=== PATIENT | male | born 1945 | race Caucasian/White ===

== ENCOUNTER 2017-03-29 16:58 | Inpatient (IN) | payer OTHER, MEDICARE ==
[~2017-03-29 16:58] MED LIST: CHOL1TAB6 PO; DOCU100T9 PO; ELVI1TAB4; HYDR25R RECTAL; MIDO5 PO; POLY17S PO; PRAV20 PO; TAB-TAB PO; TAMS.4 PO
[2017-03-29 17:02] VITALS: BP 117/64; PULSE 84; RESP 16; TEMP 97.6; O2SAT 96
[2017-03-29 17:36] LABS: AUTOMATED NEUTROPHIL # 3.7 TH/MM3 (1.8-7.7); BASOPHIL % 0.4 % (0.0-2.0); EOSINOPHIL # 0.1 TH/MM3 (0-0.4); EOSINOPHIL % 1.4 % (0.0-4.0); HEMO FLAGS DIFF FINAL; LYMPH % 43.5 % (9.0-44.0); LYMPHOCYTE # 3.4 TH/MM3 (1.0-4.8); MEAN CELL VOLUME 92.9 FL (80.0-100.0); MEAN CORPUSCULAR HEMOGLOBIN 29.5 PG (27.0-34.0); MEAN CORPUSCULAR HGB CONC 31.8 % (32.0-36.0); MONO % 8.6 % (0.0-8.0); NEUT % 46.1 % (16.0-70.0); PLATELET COUNT 177 TH/MM3 (150-450); RED BLOOD COUNT 4.41 MIL/MM3 (4.50-5.90); RED CELL DISTRIBUTION WIDTH 15.1 % (11.6-17.2); WHITE BLOOD COUNT 7.9 TH/MM3 (4.0-11.0)
[2017-03-29 17:43] LABS: POTASSIUM 3.6 MEQ/L (3.5-5.1)
[2017-03-29 17:49] LABS: APTT (PATIENT) 29.6 SEC (24.3-30.1); PROTHROMBIN TIME - PATIENT 10.7 SEC (9.8-11.6)
--- NOTE | 2017-03-29 17:54 | PD ---
HPI Chief Complaint: Fall Time Seen by Provider: 17:02 Travel History International Travel<30 days: No Contact w/Intl Traveler<30days: No Traveled to known affect area: No History of Present Illness HPI 71-year-old male states he tripped and fell while he was walking his dog and now has pain to his left lower ribs on the back area. He did not hit his head or black out. He denies any other concurrent complaints. He presents by ambulance. Pain is sharp. Severity is severe per patient. Pain is worse with movement. He denies other modifying factors. Duration shortly prior to arrival. He denies taking blood thinner medications PFSH Past Medical History Arthritis: Yes Autoimmune Disease: Yes (HIV) Blood Disorders: No Cancer: No Cardiovascular Problems: Yes High Cholesterol: Yes Chemotherapy: No COPD: Yes Cerebrovascular Accident: No Diabetes: Yes Patient Takes Glucophage: Yes Endocrine: Yes Gastrointestinal Disorders: Yes (Was constipated,took laxitives,diarrhea) GERD: Yes Genitourinary: Yes (Admitted 01/04/16 with retension,catheter placed) Hypertension: Yes (States not in 3 to 4 years) Immune Disorder: Yes (HIV ) Implanted Vascular Access Dvce: No Musculoskeletal: Yes Neurologic: No Psychiatric: No Reproductive: Yes (Circumcised 2013, ED since) Respiratory: Yes (COPD) Radiation Therapy: No Tetanus Vaccination: < 5 Years Influenza Vaccination: Yes Past Surgical History Abdominal Surgery: Yes (GALLBLADDER REMOVED 2011) AICD: No Arteriovenous Shunt: No Cardiac Surgery: No Ear Surgery: No Endocrine Surgery: No Eye Surgery: No Genitourinary Surgery: Yes (Circumcision 2013) Gynecologic Surgery: No Insulin Pump: No Joint Replacement: Yes (LEFT HIP) Oral Surgery: No Pacemaker: No Thoracic Surgery: No Other Surgery: Yes (CIRCUMCISION) Social History Alcohol Use: Yes (SOCIAL) Tobacco Use: No (QUIT 5 YRS AGO) Substance Use: No (States no hx drug use,HIV from tattoo in [place]) Allergies-Medications (Allergen,Severity, Reaction): Coded Allergies: brompheniramine (Unverified Allergy, Intermediate, HIVES, 03/29/17) phenylpropanolamine (Unverified Allergy, Intermediate, HIVES, 03/29/17) propoxyphene (Unverified Allergy, Intermediate, Hives, 03/29/17) Reported Meds & Prescriptions Reported Meds & Active Scripts Active Review of Systems Except as stated in HPI: all other systems reviewed are Neg Physical Exam Narrative General: 71 y/o patient in no apparent distress Skin: Warm and dry Eyes: Pupils equal, eomi ENT: no septal hematoma NECK: no pain with palpation and range of motion in midline Cardiovascular: Regular rate and rhythm Respiratory: Normal respiratory effort noted, clear to auscultation bilaterally Abdomen: soft, nontender, nondistended Back: No step-offs, midline spine nontender with palpation, tender to left lower lateral rib area posteriorly Extremities: No pain over main joints Neuro: awake, alert, sensation and motor grossly intact Data Data Last Documented VS Vital Signs Date Time Temp Pulse Resp B/P (MAP) Pulse Ox O2 Delivery O2 Flow Rate FiO2 03/29/17 17:06 (81) 03/29/17 17:02 97.6 84 16 96 Room Air Orders Orders Chest, Pa & Lat (03/29/17 ) Complete Blood Count With Diff (03/29/17 17:04) Basic Metabolic Panel (Bmp) (03/29/17 17:04) Act Partial Throm Time (Ptt) (03/29/17 17:04) Prothrombin Time / Inr (Pt) (03/29/17 17:04) Iv Access Insert/Monitor (03/29/17 17:04) Admit Order (Ed Use Only) (03/29/17 18:29) Morphine Inj (Morphine Inj) (03/29/17 18:30) Ondansetron Inj (Zofran Inj) (03/29/17 18:30) Labs Laboratory Tests Test 03/29/17 17:30 White Blood Count 7.9 TH/MM3 Red Blood Count 4.41 MIL/MM3 Hemoglobin 13.0 GM/DL Hematocrit 41.0 % Mean Corpuscular Volume 92.9 FL Mean Corpuscular Hemoglobin 29.5 PG Mean Corpuscular Hemoglobin Concent 31.8 % Red Cell Distribution Width 15.1 % Platelet Count 177 TH/MM3 Mean Platelet Volume 8.6 FL Neutrophils (%) (Auto) 46.1 % Lymphocytes (%) (Auto) 43.5 % Monocytes (%) (Auto) 8.6 % Eosinophils (%) (Auto) 1.4 % Basophils (%) (Auto) 0.4 % Neutrophils # (Auto) 3.7 TH/MM3 Lymphocytes # (Auto) 3.4 TH/MM3 Monocytes # (Auto) 0.7 TH/MM3 Eosinophils # (Auto) 0.1 TH/MM3 Basophils # (Auto) 0.0 TH/MM3 CBC Comment DIFF FINAL Differential Comment Prothrombin Time 10.7 SEC Prothromb Time International Ratio 1.0 RATIO Activated Partial Thromboplast Time 29.6 SEC Blood Urea Nitrogen 16 MG/DL Creatinine 0.96 MG/DL Random Glucose 323 MG/DL Calcium Level 8.7 MG/DL Sodium Level 131 MEQ/L Potassium Level 3.6 MEQ/L Chloride Level 96 MEQ/L Carbon Dioxide Level 23.0 MEQ/L Anion Gap 12 MEQ/L Estimat Glomerular Filtration Rate 77 ML/MIN MDM Medical Decision Making Medical Screen Exam Complete: Yes Emergency Medical Condition: Yes Medical Record Reviewed: Yes (past history confirmed) Interpretation(s) CBC & BMP Diagram 03/29/17 17:30 Calcium Level 8.7 Last 24 hours Impressions Chest X-Ray 03/29/17 0000 Signed Impressions: Service Date/Time: Wednesday, March 29, 2017 17:31 - CONCLUSION: 1. Mildly displaced fractures of the left posterior sixth, seventh and eighth ribs. 2. Small right basilar effusion and atelectasis. Seun Wiseman MD Differential Diagnosis Rib fracture, pneumothorax, contusion Narrative Course Will check blood work and chest x-ray and reevaluate Chest x-ray shows 3 posterior rib fractures over patient's area of pain. Patient denies any new complaints. Given morphine and Zofran for pain control. We'll discuss with trauma surgery Patient updated and agrees to observation for pain control and monitoring, wanting to limit narcotics if possible Physician Communication Physician Communication dr tonia castaneda can admit to medicine in [place] dr saeed agrees to admit Diagnosis Primary Impression: Ribs, multiple fractures Qualified Codes: S22.42XA - Multiple fractures of ribs, left side, initial encounter for closed fracture Aditi Lane MD Mar 29, 2017 17:54
--- NOTE | 2017-03-29 17:56 | RADRPT ---
EXAM DATE/TIME: 03/29/2017 17:31 [facility] COMPARISON: ABDOMEN KUB ONLY, January 05, 2016, 10:52. INDICATIONS : Left upper rib and chest pain since falling this afternoon. MEDICAL HISTORY : Hypercholesterolemia. Hypertension. Chronic obstructive pulmonary disease. Blindness. Dyspnea. Arthri tis. Diabetes. HIV. SURGICAL HISTORY : Cholecystectomy. Left hip surgery. ENCOUNTER: Initial ACUITY: 1 day PAIN SCORE: 8/10 LOCATION: Left upper chest FINDINGS: There is a small right basilar effusion and consolidation in the right lung base. The left lung is cl ear. No pneumothorax is seen. The heart is mildly enlarged. The mediastinal contours are within arabella l limits. The osseous structures demonstrate mildly displaced fractures of the left posterior sixth, seventh an d eighth ribs. The remainder the osseous structures are intact. CONCLUSION: 1. Mildly displaced fractures of the left posterior sixth, seventh and eighth ribs. 2. Small right basilar effusion and atelectasis. Seun Wiseman MD on March 29, 2017 at 17:53 Board Certified Radiologist. This report was verified electronically.
[2017-03-29] MEDS ORDERED: LACTULOSE SYRUP 20 GM/30 ML CUP PO PRN (18:30)
[2017-03-29] MEDS ORDERED: ONDANSETRON HCL 4 MG/2 ML VIAL IVP PRN (18:30)
[2017-03-29] MEDS ORDERED: ONDANSETRON HCL 4 MG/2 ML VIAL IV PUSH ONE (18:30)
[2017-03-29] MEDS ORDERED: BISACODYL 10 MG SUPP RECTAL PRN (18:30)
[2017-03-29] MEDS ORDERED: SENNOSIDES 8.6 MG TAB PO PRN (18:30)
[2017-03-29] MEDS ORDERED: MORPHINE SULFATE 8 MG/ML INJ IV PUSH ONE (18:30)
[2017-03-29] MEDS ORDERED: oxyCODONE/ACETAMINOPHEN 5 MG/325 MG TAB PO PRN (18:30)
[2017-03-29] MEDS ORDERED: NALOXONE HCL 0.4 MG/ML AMP IV PUSH PRN (18:30)
[2017-03-29] MEDS ORDERED: SODIUM CHLORIDE 0.9% FLUSH 10 ML FLUSH IV FLUSH PRN (18:30)
[2017-03-29] MEDS ORDERED: MAGNESIUM HYDROXIDE SUSP 30 ML CUP PO PRN (18:30)
[2017-03-29] MEDS ORDERED: ACETAMINOPHEN 325 MG TAB PO PRN (18:30)
[2017-03-29] MEDS ORDERED: INSULIN SQ (18:46)
[2017-03-29] MEDS ORDERED: MIDO10TA PO (18:46)
[2017-03-29] MEDS ORDERED: PRAV20TA2 PO (18:46)
[2017-03-29] MEDS ORDERED: VITA1000 PO (18:46)
[2017-03-29] MEDS ORDERED: ELVI1TAB3 PO (18:46)
[2017-03-29] MEDS ORDERED: GLUCAGON 1 MG/ML VIAL OTHER PRN (19:30)
[2017-03-29] MEDS ORDERED: DEXTROSE 50% IN WATER 50 ML VIAL(D50) IV PUSH PRN (19:30)
[2017-03-29] MEDS: HYDROmorphone HCL PF 1 MG/ML VIAL IV PUSH PRN (19:45)
[2017-03-29 20:40] VITALS: BP 129/66; PULSE 86; RESP 18; TEMP 97.6; O2SAT 93
[2017-03-29] MEDS ORDERED: PRAVASTATIN SOD 20 MG TAB PO SCH (21:00)
--- NOTE | 2017-03-29 21:13 | RADRPT ---
EXAM DATE/TIME: 03/29/2017 19:26 [facility] COMPARISON: CT ABDOMEN & PELVIS W CONTRAST, January 04, 2016, 13:49. INDICATIONS : Tripped and now has left sided chest pain. RADIATION DOSE: 21.66 CTDIvol (mGy) MEDICAL HISTORY : Hypertension. Chronic obstructive pulmonary disease. Gastroesophageal reflux disease. SURGICAL HISTORY : Cholecystectomy. Left hip surgery. ENCOUNTER: Initial ACUITY: 1 day PAIN SCALE: 5/10 LOCATION: Left chest TECHNIQUE: Volumetric scanning of the chest was performed. Using automated exposure control and adjustment of t he mA and/or kV according to patient size, radiation dose was kept as low as reasonably achievable to obtain optimal diagnostic quality images. DICOM format image data is available electronically for r eview and comparison. Follow-up recommendations for detected pulmonary nodules are based at a minimum on nodule size and pa tient risk factors according to Fleischner Society Guidelines. FINDINGS: There is a 1.3 cm mass in the right upper lobe and a 0.8 cm mass in the right middle lobe. There are some patchy areas of suspected atelectasis seen bilaterally being most prominent in the right upper lung. There is a mild left pleural effusion with some accompanying atelectasis at the right lower lob e. The mediastinal structures appear grossly intact for a noncontrast CT examination. Calcifications are seen at the coronary arteries. Normal size lymph nodes are seen in the mediastinum. There are fractures of the left sixth and seventh posterior ribs. There is some induration seen around the left adrenal gland. This was present on the prior CT examin ation of the abdomen and is unchanged. CONCLUSION: 1. Acute left sixth and seventh posterior rib fractures. 2. Two pulmonary nodules seen in the right lung. These can be further evaluated as an out patient wit h a PET scan to determine if they are metabolically active or not. 3. Mild right pleural effusion with suspected accompanying atelectasis at the right lung base. 4. Patchy areas of suspected atelectasis in the lungs bilaterally being most prominent in the right u pper lung. Shalom Serrano MD on March 29, 2017 at 21:00 Board Certified Radiologist. This report was verified electronically.
[2017-03-29] MEDS: DOCUSATE SODIUM 50 MG/SENNA 8.6 MG TAB PO SCH (21:57)
[2017-03-29] MEDS: MIDODRINE 5 MG TAB PO SCH (21:59)
[2017-03-29 22:00] VITALS: O2SAT 94
[2017-03-29] MEDS: SODIUM CHLORIDE 0.9% FLUSH 10 ML FLUSH IV FLUSH SCH (22:01)
[2017-03-29] MEDS: INSULIN ASPART SUPPLEMENTAL SCALE SQ SCH (22:02)
[2017-03-29] MEDS: oxyCODONE/ACETAMINOPHEN 10 MG/325 MG TAB PO PRN (22:44)
[2017-03-30] VITALS (8 sets, daily range): BP systolic 115–160; BP diastolic 61–84; PULSE 64–91; RESP 20; TEMP 96.1–97.5; O2SAT 90–98
[2017-03-30] MEDS: HYDROmorphone HCL PF 1 MG/ML VIAL IV PUSH PRN (02:49)
[2017-03-30] MEDS: INSULIN ASPART SUPPLEMENTAL SCALE SQ SCH ×2 (08:00→13:13)
[2017-03-30 08:54] LABS: AUTOMATED NEUTROPHIL # 4.4 TH/MM3 (1.8-7.7); BASOPHIL # 0.1 TH/MM3 (0-0.2); BASOPHIL % 0.7 % (0.0-2.0); EOSINOPHIL # 0.1 TH/MM3 (0-0.4); EOSINOPHIL % 1.4 % (0.0-4.0); HEMATOCRIT 39.3 % (39.0-51.0); HEMO FLAGS DIFF FINAL; LYMPH % 33.4 % (9.0-44.0); LYMPHOCYTE # 2.7 TH/MM3 (1.0-4.8); MEAN CELL VOLUME 91.1 FL (80.0-100.0); MEAN CORPUSCULAR HEMOGLOBIN 29.4 PG (27.0-34.0); MEAN CORPUSCULAR HGB CONC 32.3 % (32.0-36.0); MONO % 10.5 % (0.0-8.0); PLATELET COUNT 168 TH/MM3 (150-450); RED BLOOD COUNT 4.31 MIL/MM3 (4.50-5.90); RED CELL DISTRIBUTION WIDTH 14.7 % (11.6-17.2); WHITE BLOOD COUNT 8.2 TH/MM3 (4.0-11.0)
[2017-03-30] MEDS ORDERED: [UNRECOGNIZED DRUG - OTHER] PO SCH (09:00)
[2017-03-30 09:05] LABS: POTASSIUM 4.3 MEQ/L (3.5-5.1)
[2017-03-30 09:08] LABS: BICARBONATE 27.2 MEQ/L (21.0-32.0)
--- NOTE | 2017-03-30 09:27 | HHI.HP ---
[facility] Service [facility] Primary Care Physician [facility] Admission Diagnosis rib fractures Diagnoses: (1) Fall Diagnosis: Secondary (2) Lightheadedness Diagnosis: Principal (3) Ribs, multiple fractures Diagnosis: Secondary (4) Diabetes Diagnosis: Secondary (5) HIV (human immunodeficiency virus infection) Diagnosis: Secondary Chief Complaint: Fall at home Rib pain Travel History International Travel<30 Days: Yes Contact w/Intl Traveler <30 Da: Yes Name of Country Traveled to: [facility] [place] Traveled to Known Affected Are: Yes History of Present Illness Written by Esperanza Stapleton, acting as scribe for Dr. Vidales on 03/30/17 at 09:15. Mr. Bhat is a 71-year-old male patient with a known medical history of hyperlipidemia, HTN, BM, COPD and HIV who presented to the ED via [facility] after falling at home. Patient states he was getting up to let his dogs out and felt lightheaded and fell to the ground. Denies any loss of consciousness or hitting his head. Does state he hit his left rib area experienced left sided sharp pain , worsens with increased movement and deep breathing. States he has been having lightheadedness intermittently for several months now. His PCP has placed him on Midodrine due to low BP's with recommendations to be careful with standing and moving too quickly. He states that he gets dizzy when initially standing up or walking. Patient also complaints of some dyspnea with increased activity. Does state he was supposed to get outpatient workup for COPD but has not done the tests yet. Denies any recent illness including fever, chills, headache, cough, shortness of breath, abdominal pain, nausea, vomiting, diarrhea or dysuria. He never had any chest pains prior to this episode. Pt is eager to go home and feels that his pain is well controlled w PO pain meds. Denies any worsening SOB. No lightheadedness or dizziness at time of evaluation Review of Systems Constitutional: DENIES: Fever, Chills, Dizziness Eyes: DENIES: Blurred vision Ears, nose, mouth, throat: DENIES: Throat pain Respiratory: DENIES: Cough, Shortness of breath Cardiovascular: DENIES: Chest pain Gastrointestinal: DENIES: Abdominal pain, Constipation, Diarrhea, Nausea, Vomiting Psychiatric: DENIES: Anxiety Except as stated in HPI: all other systems reviewed are Neg Past Family Social History Past Medical History HIV Hyperlipidemia Hypertension Type 2 diabetes mellitus GERD COPD Past Surgical History Cholecystectomy Left hip replacement Reported Medications Active Reported Genvoya (Myrkretpfaqq-Bqbcjwcpcg-Wvjmmekhcwyf-Tenofvir) [phone] Mg Tab 1 Tab PO DAILY [Insulin] 25 Unit SQ HS Vitamin D-1000 (Cholecalciferol) 1,000 Unit Tab 1,000 Units PO DAILY Midodrine 10 Mg Tab 10 Mg PO BID Pravastatin 20 Mg Tab 20 Mg PO HS Allergies: Coded Allergies: brompheniramine (Unverified Allergy, Intermediate, HIVES, 03/29/17) phenylpropanolamine (Unverified Allergy, Intermediate, HIVES, 03/29/17) propoxyphene (Unverified Allergy, Intermediate, Hives, 03/29/17) Active Ordered Medications Current Medications Medications (Trade) Dose Ordered Sig/Dara Route Start Time Stop Time Status Last Admin (NS Flush) 2 ml UNSCH PRN IV FLUSH 03/29/17 18:30 (NS Flush) 2 ml BID IV FLUSH 03/29/17 21:00 03/29/17 22:01 (Tylenol) 650 mg Q4H PRN PO 03/29/17 18:30 (Zofran Inj) 4 mg Q6H PRN IVP 03/29/17 18:30 (Percocet 5-325 Mg) 1 tab Q6H PRN PO 03/29/17 18:30 (Percocet 10-325 Mg) 1 tab Q6H PRN PO 03/29/17 18:30 03/29/17 22:44 (Dilaudid Pf Inj) 1 mg Q3H PRN IV PUSH 03/29/17 18:30 03/30/17 02:49 (Narcan Inj) 0.4 mg UNSCH PRN IV PUSH 03/29/17 18:30 (Mari-Colace) 1 tab BID PO 03/29/17 21:00 03/29/17 21:57 (Milk Of Magnesia Liq) 30 ml Q12H PRN PO 03/29/17 18:30 (Senokot) 17.2 mg Q12H PRN PO 03/29/17 18:30 (Dulcolax Supp) 10 mg DAILY PRN RECTAL 03/29/17 18:30 (Lactulose Liq) 30 ml DAILY PRN PO 03/29/17 18:30 (D50w (Vial) Inj) 50 ml UNSCH PRN IV PUSH 03/29/17 19:30 (Glucagon Inj) 1 mg UNSCH PRN OTHER 03/29/17 19:30 (NovoLOG SUPPLEMENTAL SCALE) 1 ACHS SLIDING SCALE SQ 03/29/17 21:00 03/29/17 22:02 (Proamatine) 10 mg BID PO 03/29/17 21:00 03/29/17 21:59 (Pravachol) 20 mg HS PO 03/29/17 21:00 03/29/17 21:57 Patient Own Medication PT OWN MED: (Elvitegravir-Cobicis... DAILY PO 03/30/17 09:00 Future Hold Family History Father has a history of cardiovascular disease. Mother has history of diabetes and cardiovascular disease. Social History Denies any current tobacco use, does admit to quitting smoking 5 years ago. Prior use was 3-4 packs per day for 40 years. Admits to occasional alcohol use. Denies any illicit drug use. Physical Exam Vital Signs Vital Signs Date Time Temp Pulse Resp B/P (MAP) Pulse Ox O2 Delivery O2 Flow Rate FiO2 03/29/17 22:00 94 21 03/29/17 20:40 97.6 86 18 129/66 (87) 93 03/29/17 20:21 16 03/29/17 19:47 Room Air 03/29/17 19:16 18 03/29/17 17:06 (81) 03/29/17 17:02 97.6 84 16 117/64 (81) 96 Room Air 03/29/17 17:02 Room Air Physical Exam GENERAL: This is a well-nourished, well-developed male patient SKIN: Warm and dry. HEENT: Atraumatic. Normocephalic. Pupils equal round and reactive. Extraocular motions intact. No scleral icterus. No injection or drainage. Nose without bleeding. Throat without erythema, tonsillar hypertrophy or exudate. Uvula midline. Airway patent. NECK: Trachea midline. No JVD. Supple. CARDIOVASCULAR: Regular rate and rhythm without murmurs Chest tender to palpation on the left RESPIRATORY: Clear to auscultation. Breath sounds equal bilaterally. No wheezes GASTROINTESTINAL: Abdomen soft, non-tender, nondistended. No guarding. MUSCULOSKELETAL: Extremities without edema. Left sided rib pain with movement and palpation. NEUROLOGICAL: Awake and alert. Cranial nerves II through XII intact. Motor and sensory grossly within normal limits. Five out of 5 muscle strength in all muscle groups. Normal speech. Laboratory Laboratory Tests Test 03/29/17 17:30 03/30/17 08:20 White Blood Count 7.9 8.2 Red Blood Count 4.41 4.31 Hemoglobin 13.0 12.7 Hematocrit 41.0 39.3 Mean Corpuscular Volume 92.9 91.1 Mean Corpuscular Hemoglobin 29.5 29.4 Mean Corpuscular Hemoglobin Concent 31.8 32.3 Red Cell Distribution Width 15.1 14.7 Platelet Count 177 168 Mean Platelet Volume 8.6 8.6 Neutrophils (%) (Auto) 46.1 54.0 Lymphocytes (%) (Auto) 43.5 33.4 Monocytes (%) (Auto) 8.6 10.5 Eosinophils (%) (Auto) 1.4 1.4 Basophils (%) (Auto) 0.4 0.7 Neutrophils # (Auto) 3.7 4.4 Lymphocytes # (Auto) 3.4 2.7 Monocytes # (Auto) 0.7 0.9 Eosinophils # (Auto) 0.1 0.1 Basophils # (Auto) 0.0 0.1 CBC Comment DIFF FINAL DIFF FINAL Differential Comment Prothrombin Time 10.7 Prothromb Time International Ratio 1.0 Activated Partial Thromboplast Time 29.6 Blood Urea Nitrogen 16 Creatinine 0.96 Random Glucose 323 Calcium Level 8.7 8.4 Sodium Level 131 131 Potassium Level 3.6 4.3 Chloride Level 96 95 Carbon Dioxide Level 23.0 27.2 Anion Gap 12 9 Estimat Glomerular Filtration Rate 77 Result Diagram: 03/30/17 0820 03/30/17 0820 Imaging Last Impressions Chest X-Ray 03/29/17 0000 Signed Impressions: Service Date/Time: Wednesday, March 29, 2017 17:31 - CONCLUSION: 1. Mildly displaced fractures of the left posterior sixth, seventh and eighth ribs. 2. Small right basilar effusion and atelectasis. Seun Wiseman MD Chest CT 03/29/17 0000 Signed Impressions: Service Date/Time: Wednesday, March 29, 2017 19:26 - CONCLUSION: 1. Acute left sixth and seventh posterior rib fractures. 2. Two pulmonary nodules seen in the right lung. These can be further evaluated as an out patient with a PET scan to determine if they are metabolically active or not. 3. Mild right pleural effusion with suspected accompanying atelectasis at the right lung base. 4. Patchy areas of suspected atelectasis in the lungs bilaterally being most prominent in the right upper lung. Shalom Serrano MD Caprini VTE Risk Assessment Caprini VTE Risk Assessment: Mod/High Risk (score >= 2) Caprini Risk Assessment Model Point Value = 1 Point Value = 2 Point Value = 3 Point Value = 5 Age 41-60 Minor surgery BMI > 25 kg/m2 Swollen legs Varicose veins or History of unexplained or recurrent spontaneous Oral contraceptives or hormone replacement Sepsis (< 1 month) Serious lung disease, including pneumonia (< 1 month) Abnormal pulmonary function Acute myocardial infarction Congestive heart failure (< 1 month) History of inflammatory bowel disease Medical patient at bed rest Age 61-74 Arthroscopic surgery Major open surgery (> 45 min) Laparoscopic surgery (> 45 min) Malignancy Confined to bed (> 72 hours) Immobilizing plaster cast Central venous access Age >= 75 History of VTE Family history of VTE Factor V Leiden Prothrombin [id number] Lupus anticoagulant Anticardiolipin antibodies Elevated serum homocysteine Heparin-induced thrombocytopenia Other congenital or acquired thrombophilia Stroke (< 1 month) Elective arthroplasty Hip, pelvis, or leg fracture Acute spinal cord injury (< 1 month) Prophylaxis Regimen Total Risk Factor Score Risk Level Prophylaxis Regimen 0-1 Low Early ambulation 2 Moderate Order ONE of the following: *Sequential Compression Device (SCD) *Heparin 5000 units SQ BID 3-4 Higher Order ONE of the following medications: *Heparin 5000 units SQ TID *Enoxaparin/Lovenox 40 mg SQ daily (WT < 150 kg, CrCl > 30 mL/min) *Enoxaparin/Lovenox 30 mg SQ daily (WT < 150 kg, CrCl > 10-29 mL/min) *Enoxaparin/Lovenox 30 mg SQ BID (WT < 150 kg, CrCl > 30 mL/min) AND/OR *Sequential Compression Device (SCD) 5 or more Highest Order ONE of the following medications: *Heparin 5000 units SQ TID (Preferred with Epidurals) *Enoxaparin/Lovenox 40 mg SQ daily (WT < 150 kg, CrCl > 30 mL/min) *Enoxaparin/Lovenox 30 mg SQ daily (WT < 150 kg, CrCl > 10-29 mL/min) *Enoxaparin/Lovenox 30 mg SQ BID (WT < 150 kg, CrCl > 30 mL/min) AND *Sequential Compression Device (SCD) Assessment and Plan Assessment and Plan Mr. Bhat is a 71-year-old male patient with a known medical history of hyperlipidemia, HTN, BM, COPD and HIV who presented to the ED via [facility] after falling at home. Fall at home Multiple rib fractures secondary to above Patient has seen his PCP in the outpatient setting for lightheadedness and has been placed on Midodrine. Will order ultrasound of the carotids to rule out any blockage. Continue home Midodrine Obtain orthostatic BPs and follow. CBC reviewed and essentially unremarkable. CXR reviewed showing mildly displaced fractures of the left posterior 6ht,7th , and 8th ribs. Will order PA and lat today. Follow. Chest CT ordered showing acute 6ht and 7th rib fractures. Two pulmonary nodules seen in right lung. Outpatient PET scan recommended. Pt aware of nodules and is being worked up as an outpatient. Control pain, Dilaudid IV available PRN. Percocet PO PRN. PT evaluation order, appreciate input. Type 2 diabetes mellitus, chronic: ACCU checks ACHS, sliding scale insulin, cover as needed. Diabetic diet. Hyperlipidemia: Continue home Pravastatin. HIV, chronic: Continue home Genvoya. DVT Prophylaxis: SCDs. This note was transcribed by mario Stapleton. I, Dr. Debbie Vidales personally performed the history, physical exam, and medical decision making; and confirmed the accuracy of the information in the transcribed note. Authenticated by Dr. Debbie Vidales on 03/30/17 at 09:15. Discussed Condition With w patient. Physician Certification 2 Midnight Certification Type: Admission for Inpatient Services Order for Inpatient Services The services are ordered in accordance with Medicare regulations or non- Medicare payer requirements, as applicable. In the case of services not specified as inpatient-only, they are appropriately provided as inpatient services in accordance with the 2-midnight benchmark. Estimated LOS (days): 2 2 days is the estimated time the patient will need to remain in the hospital, assuming treatment plan goals are met and no additional complications. Post-Hospital Plan: Home Problem Qualifiers (1) Ribs, multiple fractures: Qualified Codes: S22.42XA - Multiple fractures of ribs, left side, initial encounter for closed fracture Esperanza Stapleton Mar 30, 2017 09:27 Debbie Vidales MD Mar 30, 2017 16:57
[2017-03-30] MEDS: DOCUSATE SODIUM 50 MG/SENNA 8.6 MG TAB PO SCH (09:51)
[2017-03-30] MEDS: SODIUM CHLORIDE 0.9% FLUSH 10 ML FLUSH IV FLUSH SCH (09:52)
[2017-03-30] MEDS: MIDODRINE 5 MG TAB PO SCH (09:52)
[2017-03-30] MEDS: oxyCODONE/ACETAMINOPHEN 10 MG/325 MG TAB PO PRN ×2 (10:02→16:26)
--- NOTE | 2017-03-30 11:37 | RADRPT ---
EXAM DATE/TIME: 03/30/2017 11:01 [facility] COMPARISON: CHEST PA & LAT, March 29, 2017, 17:31. INDICATIONS : Left side chest pain, rib fracture. MEDICAL HISTORY : Chronic obstructive pulmonary disease. Diabetes mellitus type II. Hypercholesterolemia. HIV, hype rtension SURGICAL HISTORY : Cholecystectomy. ENCOUNTER: Subsequent ACUITY: 2 days PAIN SCORE: 4/10 LOCATION: Left chest FINDINGS: There is mild elevation of the left hemidiaphragm. There is a small right basilar effusion and consolidation in the right lower lobe. These changes are stable compared to the previous study. The heart is mildly enlarged. There is COPD changes. CONCLUSION: 1. There is blunting of the costophrenic sulcus on the right consistent with a small effusion and ate lectatic changes in the right lower lobe. There are COPD changes. 2. There are fractures of the posterior left fifth, sixth and possibly seventh ribs. 3. The exam is unchanged compared to previous. Seun Wiseman MD on March 30, 2017 at 11:35 Board Certified Radiologist. This report was verified electronically.
[2017-03-30] MEDS ORDERED: OXYC1TAB36 PO (13:20)
[2017-03-30] MEDS ORDERED: COLA100C5 PO (13:22)
--- NOTE | 2017-03-30 13:31 | RADRPT ---
EXAM DATE/TIME: 03/30/2017 11:48 [facility] COMPARISON: US CAROTID ARTERIES, January 07, 2016, 15:10. INDICATIONS : Syncope. MEDICAL HISTORY : Hypercholesterolemia. Arthritis. HIV. Left eye blind. COPD. Prostate problems. Gallbladder disease. Diabetes. PTSD. SURGICAL HISTORY : Cholecystectomy. Left hip surgery. ENCOUNTER: Initial ACUITY: 1 day PAIN SCORE: 0/10 LOCATION: Bilateral neck PEAK SYSTOLIC VELOCITIES (cm/sec): ICA/CCA RATIO: Right: 1.2 Left: 1.1 ICA: Right: 107 Left: 112 CCA: Right: 90 Left: 105 ECA: Right: 107 Left: 189 VERTEBRAL: Right: 48 antegrade Left: 47 antegrade Elevated flow velocities and ICA/CCA ratios have been found to correlate with increased degrees of vessel stenosis, calculated as percentage of diameter relative to a normal segment of distal ICA/CCA FINDINGS: RIGHT CAROTID: There is no evidence for a hemodynamically significant carotid stenosis. Minimal int imal hyperplasia is present with scattered calcific plaque. LEFT CAROTID: There is no evidence for a hemodynamically significant carotid stenosis. Minimal inti mal hyperplasia is present with scattered calcific plaque. VERTEBRAL ARTERIES: Flow is antegrade in both vertebral arteries. MISCELLANEOUS: There are no ancillary masses or adenopathy. CONCLUSION: Negative examination for a hemodynamically significant carotid stenosis. Board Certified Radiologist. This report was verified electronically.
--- NOTE | 2017-03-30 14:50 | HHI.DCPOC ---
Discharge Care Plan Diagnosis: (1) HIV (human immunodeficiency virus infection) (2) Lightheadedness (3) Ribs, multiple fractures (4) Fall Goals to Promote Your Health * To prevent worsening of your condition and complications * To maintain your health at the optimal level Directions to Meet Your Goals Take your medications as prescribed Follow your dietary instruction Follow activity as directed Keep your appointments as scheduled Take your immunizations and boosters as scheduled If your symptoms worsen call your PCP, if no PCP go to Urgent Care Center or Emergency Room Smoking is Dangerous to Your Health. Avoid second hand smoke Call the 24-hour hour crisis hotline for domestic abuse at [facility] Mar 30, 2017 14:50
--- NOTE | 2017-03-30 16:52 | HHI.FF ---
Face to Face Verification Diagnosis: (1) Lightheadedness (2) HIV (human immunodeficiency virus infection) (3) Fall Physical Therapy Order: Evaluate and Treat, Improve ambulation, Strength and gait training I have seen patient Obie Edwards Sr [place] on 03/30/17. My clinical findings support the need for the requested home health care services because: Deconditioned w/ increased weakness I certify that my clinical findings support that this patient is homebound because: Unsteady gait/balance [facility] St[facility] Mar 30, 2017 16:52
--- NOTE | 2017-03-30 17:04 | HHI.PR ---
Addendum to Inpatient Note Addendum Reason: Additional Documentation Additional Information Repeat chest x-ray reviewed and unchanged u/s carotid w no stenosis. Pt has been counseled on the importance of using the IS q1hr while awake. ok to discharge pt home w close f/u w PCP in 1 week. Pt has been counseled to notify PCP or return to ED if he starts experiencing sudden SOB. heart healthy diet Pt was told to not lift anything heavy until cleared by PCP. I did run the case by Dr. Shaikh (trauma surgeon, unofficial consult) of the case and he was agreeable w Debbie Shen MD Mar 30, 2017 17:04
== END 2017-03-30 16:27 | disposition home health service (06) | DRG 183 ==
LOC: PHED 16:58 → PHEDA 18:30 → INTOOBSV 18:30 → OBSVTOIN 18:33 → PH3A 20:40
PROVIDERS: ADMIT Hospitalist; ATTEND Hospitalist
DX: S22.42XA Multiple fractures of ribs, left side, initial encounter for closed fracture (principal); B20 Human immunodeficiency virus [HIV] disease; J44.9 Chronic obstructive pulmonary disease, unspecified; E11.9 Type 2 diabetes mellitus without complications; I10 Essential (primary) hypertension; R42 Dizziness and giddiness; E78.5 Hyperlipidemia, unspecified; K21.9 Gastro-esophageal reflux disease without esophagitis; M19.90 Unspecified osteoarthritis, unspecified site; R91.8 Other nonspecific abnormal finding of lung field; Z96.642 Presence of left artificial hip joint; Z79.4 Long term (current) use of insulin; W01.0XXA Fall on same level from slipping, tripping and stumbling without subsequent striking against object, initial encounter; Y93.01 Activity, walking, marching and hiking; Y92.009 Unspecified place in unspecified non-institutional (private) residence as the place of occurrence of the external cause
CPT/HCPCS: 71020; 71250; 80048; 82948; 85025; 85610; 85730; 93880; 94150; 99285; J1170; J1815; J2270; J2405